=== PATIENT | male | born 1980 | race American Indian/Alaskan Native ===

== ENCOUNTER 2018-05-06 10:26 | Emergency (ER) | payer OTHER ==
[2018-05-06 11:13] VITALS: BP 146/80
--- NOTE | 2018-05-06 11:14 | Emergency Department Report ---
Blank Doc - Documentation Documentation: Medical screening for abdominal pain and teeth pain time 5 days. Taking Goody powders, No PMH, back surgry. N?V/D 11/17 pain. orders has been placed
[2018-05-06 11:36] LABS: Basophils % (Auto) 0.6 % (0.0-1.8); Eosinophils # (Auto) 0.2 K/mm3 (0.0-0.4); Eosinophils % (Auto) 3.1 % (0.0-4.3); Hematocrit 43.6 % (35.5-45.6); Hemoglobin 14.7 gm/dl (11.8-15.2); Lymphocytes # (Auto) 2.5 K/mm3 (1.2-5.4); Lymphocytes % (Auto) 37.3 % (13.4-35.0); Mean Corpuscular HGB Conc 34 % (32-34); Mean Corpuscular Volume 108 fl (84-94); Monocytes # (Auto) 0.5 K/mm3 (0.0-0.8); Monocytes % (Auto) 7.9 % (0.0-7.3); Platelet Count 326 K/mm3 (140-440); Red Blood Count 4.05 M/mm3 (3.65-5.03); Red Cell Distribution Width 13.8 % (13.2-15.2)
[2018-05-06 11:52] LABS: Bilirubin,Urine NEG (Negative); Blood,Urine NEG (Negative); Color,Urine Yellow (Yellow); Mucus,Urine 1+ /HPF; Urobilinogen,Urine < 2.0 mg/dL (<2.0)
[2018-05-06] MEDS ORDERED: ZOFRAN ODT PO ONE (12:01)
[2018-05-06] MEDS ORDERED: PEPCID PO ONE (12:01)
--- NOTE | 2018-05-06 12:03 | Emergency Department Report ---
Vomiting/Diarrhea - HPI Chief Complaint: Nausea/Vomiting/Diarrhea Stated Complaint: SORE THROAT/VOMITING Time Seen by Provider: 05/06/18 11:09 Duration: 4 Days Severity: moderate Nausea/Vomiting Severity: Mild Diarrhea Severity: None Pain Location: Epigastric Pain Severity: Moderate Symptoms: Yes Able to Tolerate Fluids (occational), No Fever, No Recent Unusual Foods, No Recent Untreated Water, No Recent use of Antibiotics, No Family w/ Similar Symptoms, No Contacts w/ Similar Symptoms, No Rash, No Hematuria Other History: Patient states that he's had a problem with his right bilateral wisdom tooth for several months. He recommends using it this tooth pulled. Kay crawford is been taking Goody powders last several weeks and has been having a burning sensation in epigastrium S4 days with some nausea and vomiting. ED Review of Systems ROS: Stated complaint: SORE THROAT/VOMITING Other details as noted in HPI Comment: All other systems reviewed and negative ED Past Medical Hx - Past Medical History Previous Medical History?: No - Surgical History Additional Surgical History: back surgery - Social History Smoking Status: Current Every Day Smoker Substance Use Type: None - Medications Home Medications: Home Medications Medication Instructions Recorded Confirmed Last Taken Type Prednisone [predniSONE 10 mg 10 mg PO .TAPER #1 tab.ds.pk 04/14/15 Unknown Rx (6-Day Pack, 21 Tabs)] levoFLOXacin [Levaquin] 750 mg PO QDAY #7 tablet 04/14/15 Unknown Rx Dicyclomine [Bentyl] 10 mg PO QID #15 capsule 05/06/18 Unknown Rx Ondansetron [Zofran Odt] 4 mg PO Q8HR PRN #12 tab.rapdis 05/06/18 Unknown Rx Sucralfate [Carafate] 1 gm PO Q6HR #400 ml 05/06/18 Unknown Rx traMADol [Ultram] 50 mg PO Q6HR PRN #15 tablet 05/06/18 Unknown Rx Vomiting Diarrhea Exam - Exam General: Vital signs noted. No distress. Alert and acting appropriately. HEENT: Yes Moist Mucous Membranes, No Pharyngeal Erythema, No Pharyngeal Exudates, No Rhinorrhea, No Conjuctival Injection, No Frontal Tenderness, No Maxillary Tenderness Neck: No Adenopathy, No Rigidity Lungs: Yes Clear Lung Sounds, Yes Good Air Exchange, No Wheezes, No Stridor, No Cough, No Nasal Flaring, No Retractions, No Use of Accessory Muscles Heart exam: Regular: Yes, Murmur: No, Tachycardia: No Abdomen: Tenderness: Yes (epigastric, mild with no rebound), Peritoneal Signs: No, Distention: No, Hyperactive Bowel sounds: No Skin exam: Rash: No, Edema: No, Normal turgor: Yes Neurologic: Alert and oriented, no deficits. Musculoskeletal: Unremarkable. ED Course Vital Signs 05/06/18 05/06/18 10:52 11:11 Temperature 98.5 F 98.6 F Pulse Rate 89 87 Respiratory 14 18 Rate Blood Pressure 146/80 Blood Pressure 126/76 [Right] O2 Sat by Pulse 96 98 Oximetry ED Medical Decision Making - Lab Data Result diagrams: 05/06/18 11:28 - Medical Decision Making Patient likely with some gastritis secondary NSAIDs. Patient encouraged to not take anymore Goody powders and small child will be given instead. Patient also given referral to low income dentists. Patient to be started on carafate and Zofran as well. Critical care attestation.: If time is entered above; I have spent that time in minutes in the direct care of this critically ill patient, excluding procedure time. ED Disposition Clinical Impression: Gastritis, Pain, dental Disposition: DC-01 TO HOME OR SELFCARE Is pt being admited?: No Does the pt Need Aspirin: No Condition: Stable Instructions: Gastritis (ED), Toothache (ED) Referrals: TERRI FLORENCE MD [Staff Physician] - 3-5 Days Time of Disposition: 12:09
== END 2018-05-06 12:32 | disposition home or self-care (01) ==
LOC: ED 10:26
DX: K08.89 Other specified disorders of teeth and supporting structures (principal); K29.70 Gastritis, unspecified, without bleeding; R11.2 Nausea with vomiting, unspecified; F17.200 Nicotine dependence, unspecified, uncomplicated; J02.9 Acute pharyngitis, unspecified
CPT/HCPCS: 36415; 81001; 83690; 85025; 99283; Q0162

== ENCOUNTER 2018-08-22 07:38 | Emergency (ER) | payer OTHER ==
[2018-08-22 07:46] VITALS: BP 144/90
[2018-08-22] MEDS ORDERED: TORADOL IM ONE (09:00)
[2018-08-22] MEDS ORDERED: FLEXERIL PO ONE (09:00)
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
--- NOTE | 2018-08-22 10:27 | Cat Scan Report ---
PROCEDURE: CT LUMBAR SPINE WO CON HISTORY: back pain/injury FINDINGS: Unenhanced CT of the lumbar spine was performed and data was reformatted in the sagittal and coronal planes. These images demonstrate no fracture or malalignment of the lumbar spine. At L1-L2 and L2-L3 there are no posterior disc abnormalities. At L2-L3 there is a small posterior disc bulge resulting in mild bilateral neural foraminal narrowing without nerve root impingement. At L4-5 there is a small posterior disc bulge which effaces the anterior margin of the thecal sac. Th ere is mild bilateral neural foraminal narrowing without nerve root impingement. At L5-S1 there is posterior endplate remodeling which effaces the anterior margin of the thecal sac b ut does not appear to result in canal stenosis. There is mild right and [id number] left foramin al narrowing without nerve root impingement. IMPRESSION: No fracture is seen in the lumbar spine All CT scans at this location are performed using dose modulation techniques as appropriate to a perf ormed exam including the following: automated exposure control, adjustment of the mA and/or kV accord ing to patient size (this includes techniques or standardized protocols for targeted exams where dose is matched to indication/reason for exam, i.e.extremities or head; use of imaging [id number] This document is electronically signed by Aaron Mehta MD., August 22 2018 10:24:56 AM ET
== END 2018-08-22 10:38 | disposition home or self-care (01) ==
LOC: ED 07:38
DX: M79.18 Myalgia, other site (principal); M54.5 Low back pain; M54.2 Cervicalgia; F17.200 Nicotine dependence, unspecified, uncomplicated; Z79.1 Long term (current) use of non-steroidal anti-inflammatories (NSAID); Z79.2 Long term (current) use of antibiotics; Z79.899 Other long term (current) drug therapy; V49.49XA Driver injured in collision with other motor vehicles in traffic accident, initial encounter; Y93.89 Activity, other specified; Y92.488 Other paved roadways as the place of occurrence of the external cause; Y99.8 Other external cause status
CPT/HCPCS: 72131; 96372; 99283; J1885

== ENCOUNTER 2018-11-23 08:29 | Emergency (ER) | payer SELFPAY ==
[2018-11-23 09:16] VITALS: BP 139/85
[2018-11-23] MEDS ORDERED: TORADOL IM ONE (11:07)
[2018-11-23] MEDS ORDERED: DELTASONE PO ONE (11:07)
--- NOTE | 2018-11-23 11:16 | Emergency Department Report ---
ED Neck Pain/Injury HPI - General Chief Complaint: Neck Pain/Injury Stated Complaint: RT NECK/ARM/HAND/PAIN Time Seen by Provider: 11/23/18 10:22 Mode of arrival: Ambulatory Limitations: No Limitations - History of Present Illness Initial Comments: This is a 38-year-old male nontoxic, well nourished in appearance, no acute signs of distress presents to the ED with c/o of acute on chronic neck pain. Patient stated that the past 2 days he was moving and developed this pain. Patient states that pain radiates through to his right upper extremity. Patient stated had a recent MRI that was done last month with impression of spondylosis and cervical spine stenosis. Patient denies any trauma. Denies any bladder or bowel instability. Patient denies any urinary symptoms. Denies any fever, chills, nausea, vomiting, headache, stiff neck, chest pain or shortness of breath. Patient denies any numbness or tingling. Denies any allergies. MD Complaint: neck pain -: days(s) (2) Place: home Radiation: right upper extremity Severity: mild Severity scale (0 -10): 8 Quality: aching Consistency: intermittent Improves With: immobilization Worsens With: movement of extremity, movement of neck Associated Symptoms: none. denies: headache, fever, numbness, tingling, weakness, vertigo, difficulty walking, swollen glands, difficulty swallowing, nausea, vomiting Treatments Prior to Arrival: none - Related Data Previous Rx's Medication Instructions Recorded Last Taken Type Prednisone [predniSONE 10 mg 10 mg PO .TAPER #1 tab.ds.pk 04/14/15 Unknown Rx (6-Day Pack, 21 Tabs)] levoFLOXacin [Levaquin] 750 mg PO QDAY #7 tablet 04/14/15 Unknown Rx Dicyclomine [Bentyl] 10 mg PO QID #15 capsule 05/06/18 Unknown Rx Ondansetron [Zofran Odt] 4 mg PO Q8HR PRN #12 tab.rapdis 05/06/18 Unknown Rx Sucralfate [Carafate] 1 gm PO Q6HR #400 ml 05/06/18 Unknown Rx traMADol [Ultram] 50 mg PO Q6HR PRN #15 tablet 05/06/18 Unknown Rx Cyclobenzaprine [Flexeril] 10 mg PO QHS PRN #20 tablet 08/22/18 Unknown Rx Ibuprofen [Motrin] 800 mg PO Q8HR #30 tablet 08/22/18 Unknown Rx Cyclobenzaprine [Flexeril] 10 mg PO QHS PRN #10 tablet 11/23/18 Unknown Rx Ibuprofen [Motrin] 600 mg PO Q8H PRN #20 tablet 11/23/18 Unknown Rx Prednisone [predniSONE 10 mg 10 mg PO .TAPER #1 tab.ds.pk 11/23/18 Unknown Rx (6-Day Pack, 21 Tabs)] Allergies Allergy/AdvReac Type Severity Reaction Status Date / Time No Known Allergies Allergy Verified 08/22/18 07:40 ED Review of Systems ROS: Stated complaint: RT NECK/ARM/HAND/PAIN Other details as noted in HPI Constitutional: denies: chills, fever Eyes: denies: eye pain, eye discharge, vision change ENT: denies: ear pain, throat pain Respiratory: denies: cough, shortness of breath, wheezing Cardiovascular: denies: chest pain, palpitations Endocrine: no symptoms reported Gastrointestinal: denies: abdominal pain, nausea, diarrhea Genitourinary: denies: urgency, dysuria Musculoskeletal: denies: back pain, joint swelling, arthralgia Skin: denies: rash, lesions Neurological: denies: headache, weakness, paresthesias Psychiatric: denies: anxiety, depression Hematological/Lymphatic: denies: easy bleeding, easy bruising ED Past Medical Hx - Past Medical History Previous Medical History?: No - Surgical History Past Surgical History?: Yes Additional Surgical History: back surgery - Social History Smoking Status: Current Every Day Smoker Substance Use Type: None - Medications Home Medications: Home Medications Medication Instructions Recorded Confirmed Last Taken Type Prednisone [predniSONE 10 mg 10 mg PO .TAPER #1 tab.ds.pk 04/14/15 Unknown Rx (6-Day Pack, 21 Tabs)] levoFLOXacin [Levaquin] 750 mg PO QDAY #7 tablet 04/14/15 Unknown Rx Dicyclomine [Bentyl] 10 mg PO QID #15 capsule 05/06/18 Unknown Rx Ondansetron [Zofran Odt] 4 mg PO Q8HR PRN #12 tab.rapdis 05/06/18 Unknown Rx Sucralfate [Carafate] 1 gm PO Q6HR #400 ml 05/06/18 Unknown Rx traMADol [Ultram] 50 mg PO Q6HR PRN #15 tablet 05/06/18 Unknown Rx Cyclobenzaprine [Flexeril] 10 mg PO QHS PRN #20 tablet 08/22/18 Unknown Rx Ibuprofen [Motrin] 800 mg PO Q8HR #30 tablet 08/22/18 Unknown Rx Cyclobenzaprine [Flexeril] 10 mg PO QHS PRN #10 tablet 11/23/18 Unknown Rx Ibuprofen [Motrin] 600 mg PO Q8H PRN #20 tablet 11/23/18 Unknown Rx Prednisone [predniSONE 10 mg 10 mg PO .TAPER #1 tab.ds.pk 11/23/18 Unknown Rx (6-Day Pack, 21 Tabs)] ED Physical Exam - General Limitations: No Limitations General appearance: alert, in no apparent distress - Head Head exam: Present: atraumatic, normocephalic - Neck Neck exam: Present: normal inspection, full ROM. Absent: tenderness, meningismus, lymphadenopathy - Respiratory Respiratory exam: Present: normal lung sounds bilaterally. Absent: respiratory distress, wheezes, rales, rhonchi, stridor, chest wall tenderness, accessory muscle use, decreased breath sounds, prolonged expiratory - Cardiovascular Cardiovascular Exam: Present: regular rate, normal rhythm, normal heart sounds. Absent: bradycardia, tachycardia, irregular rhythm, systolic murmur, diastolic murmur, rubs, gallop - Extremities Exam Extremities exam: Present: normal inspection, full ROM, normal capillary refill. Absent: tenderness, joint swelling - Back Exam Back exam: Present: normal inspection, full ROM, paraspinal tenderness (cervical paraspinal). Absent: tenderness, CVA tenderness (R), CVA tenderness (L), muscle spasm, vertebral tenderness, rash noted - Neurological Exam Neurological exam: Present: alert, oriented X3, normal gait - Psychiatric Psychiatric exam: Present: normal affect, normal mood - Skin Skin exam: Present: warm, dry, intact, normal color. Absent: rash ED Course Vital Signs 11/23/18 09:14 Temperature 98.1 F Pulse Rate 80 Respiratory 18 Rate Blood Pressure 139/85 [Right] O2 Sat by Pulse 100 Oximetry - Reevaluation(s) Reevaluation #1: 11/23/18 11:15 Patient is speaking in full sentences with no signs of distress noted. ED Medical Decision Making - Medical Decision Making This is a 38-year-old male that presents with cervical muscle strain. Patient is stable was examined by me. There is no spinal tenderness. There is no cauda equina syndrome during examination. Patient refused cervical spine xray as he stated he just had a recent MRI of cervical spine last month. No bladder or bowel instability. Patient received Toradol 60 mg IM and prednisone in the ED which stated that his symptoms has resolved and subsided. Patient is discharged with muscle relaxant and Motrin. Patient was instructed not to operate any machinery while taking muscle relaxant as they cause her drowsiness. Patient was referred to Follow-up with a primary care doctor in 3-5 days or if symptoms worsen and continue return to emergency room as soon as possible. At time of di scharge, the patient does not seem toxic or ill in appearance. No acute signs of distress noted. Patient agrees to discharge treatment plan of care. No further questions noted by the patient. This chart is dictated with using [employer] Critical care attestation.: If time is entered above; I have spent that time in minutes in the direct care of this critically ill patient, excluding procedure time. ED Disposition Clinical Impression: Cervical muscle strain Qualifiers: Encounter type: initial encounter Qualified Code(s): S16.1XXA - Strain of muscle, fascia and tendon at neck level, initial encounter Disposition: DC- TO HOME OR SELFCARE Is pt being admited?: No Does the pt Need Aspirin: No Condition: Stable Instructions: Muscle Strain (ED), Cyclobenzaprine (By mouth) Additional Instructions: Follow-up with your primary care doctor in 3-5 days or if symptoms worsen such as bladder or bowel stability, chest pain, short of breath, numbness or tingling sensation in extremities, headache, dizziness, visual changes, nausea vomiting, or abdominal pain, return back to emergency room as was possible. Take ibuprofen and Flexeril as prescribed. Do not operate heavy machinery while taking Flexeril due to sedation Prescriptions: Cyclobenzaprine [Flexeril] 10 mg PO QHS PRN #10 tablet PRN Reason: Muscle Spasm Ibuprofen [Motrin] 600 mg PO Q8H PRN #20 tablet PRN Reason: Pain Prednisone [predniSONE 10 mg (6-Day Pack, 21 Tabs)] 10 mg PO .TAPER #1 tab.ds.pk Referrals: PRIMARY CARE, [Primary Care Provider] - 3-5 Days LIZ GARCIA MD [Staff Physician] - 3-5 Days [facility] [Outside] - 3-5 Days [facility] [Outside] - 3-5 Days Forms: Work/School Release Form(ED)
== END 2018-11-23 11:17 | disposition home or self-care (01) ==
LOC: ED 08:29
DX: S16.1XXA Strain of muscle, fascia and tendon at neck level, initial encounter (principal); F17.200 Nicotine dependence, unspecified, uncomplicated; Z98.890 Other specified postprocedural states; Z79.899 Other long term (current) drug therapy; X58.XXXA Exposure to other specified factors, initial encounter; Y93.89 Activity, other specified; Y92.89 Other specified places as the place of occurrence of the external cause; Y99.8 Other external cause status
CPT/HCPCS: 96372; 99282; J1885; J7512

== ENCOUNTER 2020-10-13 15:08 | Emergency (ER) | payer OTHER ==
[2020-10-13 15:49] VITALS: BP 127/86
[2020-10-13] MEDS ORDERED: KETOROLAC 30 MG/1 ML INJ IV ONE (18:12)
[2020-10-13] MEDS ORDERED: methylPREDNISolone Sod Succinate 125 MG/2 ML INJ IV ONE (18:12)
--- NOTE | 2020-10-13 18:13 | Emergency Department Report ---
ED Back Pain/Injury HPI - General Chief Complaint: Dental/Oral Stated Complaint: BACK AND TOOTH PAIN Time Seen by Provider: 10/13/20 18:10 Source: patient Limitations: No Limitations - History of Present Illness Initial Comments: This is a 40-year-old male who presents the emergency department with a chief complaint of dental pain and swelling to the right lower jaw, left lower jaw and left upper jaw as well as lice in the genital area. He also reports he has been having low back pain over the past few months that has progressively worsened over the past 2 weeks. Reports pain radiates down his left leg and is associated with saddle paresthesias and "I cannot feel a sensation of urination." He states he had a discectomy in his lower back by Dr. Luna at [facility]. He denies any injuries, associated fever, chills, night sweats, headache, dizziness, blurry vision, nausea, vomiting, diarrhea, chest pain, shortness of breath, weakness or any other associated symptoms. - Related Data Previous Rx's Medication Instructions Recorded Last Taken Type Prednisone [predniSONE 10 mg 10 mg PO .TAPER #1 tab.ds.pk 04/14/15 Unknown Rx (6-Day Pack, 21 Tabs)] levoFLOXacin [Levaquin] 750 mg PO QDAY #7 tablet 04/14/15 Unknown Rx Dicyclomine [Bentyl] 10 mg PO QID #15 capsule 05/06/18 Unknown Rx Ondansetron [Zofran Odt] 4 mg PO Q8HR PRN #12 tab.rapdis 05/06/18 Unknown Rx Sucralfate [Carafate] 1 gm PO Q6HR #400 ml 05/06/18 Unknown Rx traMADoL [Ultram] 50 mg PO Q6HR PRN #15 tablet 05/06/18 Unknown Rx Cyclobenzaprine [Flexeril] 10 mg PO QHS PRN #20 tablet 08/22/18 Unknown Rx Ibuprofen [Motrin] 800 mg PO Q8HR #30 tablet 08/22/18 Unknown Rx Cyclobenzaprine [Flexeril] 10 mg PO QHS PRN #10 tablet 11/23/18 Unknown Rx Ibuprofen [Motrin] 600 mg PO Q8H PRN #20 tablet 11/23/18 Unknown Rx Prednisone [predniSONE 10 mg 10 mg PO .TAPER #1 tab.ds.pk 11/23/18 Unknown Rx (6-Day Pack, 21 Tabs)] HYDROcodone/APAP 5-325 [[place] 1 each PO Q6HR PRN #12 tablet 10/13/20 Unknown Rx 5/325] Penicillin V Potassium 500 mg PO QID #40 tablet 10/13/20 Unknown Rx methOCARBAMOL [Robaxin TAB] 500 mg PO Q6H PRN #20 tablet 10/13/20 Unknown Rx methylPREDNISolone [Medrol 4MG 4 mg PO ONCE #1 tab.ds.pk 10/13/20 Unknown Rx DOSEPAK (21 tabs)] Allergies Allergy/AdvReac Type Severity Reaction Status Date / Time No Known Allergies Allergy Verified 08/22/18 07:40 ED Review of Systems ROS: Stated complaint: BACK AND TOOTH PAIN Other details as noted in HPI Comment: All other systems reviewed and negative Constitutional: denies: chills, fever Eyes: denies: eye pain, eye discharge, vision change ENT: as per HPI, dental pain. denies: ear pain, throat pain Respiratory: denies: cough, shortness of breath, wheezing Cardiovascular: denies: chest pain, palpitations Endocrine: no symptoms reported Gastrointestinal: denies: abdominal pain, nausea, diarrhea Genitourinary: denies: urgency, dysuria Musculoskeletal: as per HPI, back pain. denies: joint swelling, arthralgia Skin: denies: rash, lesions Neurological: denies: headache, weakness, paresthesias Psychiatric: denies: anxiety, depression Hematological/Lymphatic: denies: easy bleeding, easy bruising ED Past Medical Hx - Past Medical History Previous Medical History?: No - Surgical History Additional Surgical History: back surgery, neck surgery - Social History Smoking Status: Current Every Day Smoker Substance Use Type: None - Medications Home Medications: Home Medications Medication Instructions Recorded Confirmed Last Taken Type Prednisone [predniSONE 10 mg 10 mg PO .TAPER #1 tab.ds.pk 04/14/15 Unknown Rx (6-Day Pack, 21 Tabs)] levoFLOXacin [Levaquin] 750 mg PO QDAY #7 tablet 04/14/15 Unknown Rx Dicyclomine [Bentyl] 10 mg PO QID #15 capsule 05/06/18 Unknown Rx Ondansetron [Zofran Odt] 4 mg PO Q8HR PRN #12 tab.rapdis 05/06/18 Unknown Rx Sucralfate [Carafate] 1 gm PO Q6HR #400 ml 05/06/18 Unknown Rx traMADoL [Ultram] 50 mg PO Q6HR PRN #15 tablet 05/06/18 Unknown Rx Cyclobenzaprine [Flexeril] 10 mg PO QHS PRN #20 tablet 08/22/18 Unknown Rx Ibuprofen [Motrin] 800 mg PO Q8HR #30 tablet 08/22/18 Unknown Rx Cyclobenzaprine [Flexeril] 10 mg PO QHS PRN #10 tablet 11/23/18 Unknown Rx Ibuprofen [Motrin] 600 mg PO Q8H PRN #20 tablet 11/23/18 Unknown Rx Prednisone [predniSONE 10 mg 10 mg PO .TAPER #1 tab.ds.pk 11/23/18 Unknown Rx (6-Day Pack, 21 Tabs)] HYDROcodone/APAP 5-325 [[place] 1 each PO Q6HR PRN #12 tablet 10/13/20 Unknown Rx 5/325] Penicillin V Potassium 500 mg PO QID #40 tablet 10/13/20 Unknown Rx methOCARBAMOL [Robaxin TAB] 500 mg PO Q6H PRN #20 tablet 10/13/20 Unknown Rx methylPREDNISolone [Medrol 4MG 4 mg PO ONCE #1 tab.ds.pk 10/13/20 Unknown Rx DOSEPAK (21 tabs)] ED Physical Exam - General Limitations: No Limitations General appearance: alert, in no apparent distress - Head Head exam: Present: atraumatic, normocephalic - Eye Eye exam: Present: normal appearance, PERRL, EOMI Pupils: Present: normal accommodation - ENT ENT exam: Present: normal exam, mucous membranes moist, other (There are multiple dental caries with a small superficial abscess around tooth #30. No trismus, peritonsillar bulging or retropharyngeal bulging.). Absent: normal orophraynx, mucous membranes dry - Neck Neck exam: Present: normal inspection, full ROM. Absent: tenderness, meningismus - Respiratory Respiratory exam: Present: normal lung sounds bilaterally. Absent: respiratory distress, wheezes, rales, rhonchi, stridor - Cardiovascular Cardiovascular Exam: Present: regular rate, normal rhythm, normal heart sounds. Absent: systolic murmur, diastolic murmur, rubs, gallop - GI/Abdominal GI/Abdominal exam: Present: soft, normal bowel sounds. Absent: distended, tenderness, guarding, rebound, rigid - Rectal Rectal exam: Present: deferred - Extremities Exam Extremities exam: Present: normal inspection, full ROM, normal capillary refill. Absent: tenderness, calf tenderness - Back Exam Back exam: Present: normal inspection, full ROM, tenderness (Tenderness palpation over the left lower lumbar area), other (Pain with straight leg raise on the left). Absent: CVA tenderness (R), CVA tenderness (L) - Neurological Exam Neurological exam: Present: alert, oriented X3, CN II-XII intact, normal gait - Psychiatric Psychiatric exam: Present: normal affect, normal mood - Skin Skin exam: Present: warm, dry, intact, normal color. Absent: rash ED Course Vital Signs 10/13/20 15:48 Temperature 98.6 F Pulse Rate 73 Respiratory 18 Rate Blood Pressure 127/86 O2 Sat by Pulse 100 Oximetry - Consultations Consultation #1: 10/13/20 18:[address] sTe (Neurosurgery) he recommended we order CT lumbar spine and call back with results. If needed he stated we could admit to the hospital for MRI in the AM and he will consult. Consultation #2: 10/13/20 19:[address] Tse again and he reviewed the CT images himself and did not see any area of critical stenosis or any emergent surgical intervention needed. He stated that we could order an outpatient MRI and that the patient could follow-up in his clinic on Friday. I discussed this with the patient and he was agreeable to this and was wanting to go home. I discussed with attending physician who also was comfortable with this plan. ED Medical Decision Making - Lab Data Result diagrams: 10/13/20 18:37 - Radiology Data Radiology results: report reviewed, image reviewed CT lumbar spine wo con INDICATION / CLINICAL INFORMATION: 40 years Male; pain radiating down left leg. TECHNIQUE: Axial CT images of the lumbar spine were obtained with sagittal and coronal reconstructions. All CT scans at this location are performed using CT dose reduction for ALARA by means of automated exposure control. COMPARISON: The study is compared to the previous CT of 08/22/2018. FINDINGS: POST-SURGICAL CHANGES: None. ALIGNMENT: There appears be minimal retrolisthesis at L5-S1 with moderate disc space narrowing. There is no significant lumbar scoliosis. VERTEBRAE: There is vacuum disc phenomenon with mild degenerative endplate changes at L3-4. There is no clear CT evidence of acute fracture involving the lumbar spine. INTERVERTEBRAL DISCS: The posterior spondylosis at L5-S1 appears greater on the left with effacement of the left lateral recess. Additionally, there also appears to be mild to moderate left neural foraminal narrowing. There is suggestion of left hemilaminectomy defect at this level. There is a laminectomy at defect at L4-L5 at. This broad-based disc bulge which mildly deforms the ventral thecal sac at. There is mild neural foraminal narrowing bilaterally. There is also laminectomy defect at this level. There is focus of air within the anterior right lateral recess which courses superiorly which is likely related to disc protrusion and the vacuum phenomenon. The residual spondylosis also contributes to mild deformity of the ventral thecal sac and mild left foraminal narrowing. PARASPINAL SOFT TISSUES: No significant abnormality. ADDITIONAL FINDINGS: None. IMPRESSION: 1. There is no CT evidence of acute fracture involving the lumbar spine. 2. There are multilevel postsurgical and degenerative changes from L3-4 to L5- S1 as detailed above. Signer Name: Akil Shelton MD Signed: 10/13/2020 6:48 PM Workstation Name: [id number] Transcribed By: MR Dictated By: Akil Shelton MD Electronically Authenticated By: Akil Shelton MD Signed Date/Time: 10/13/201847 - Medical Decision Making Patient is nontoxic in no acute distress. Vital signs are stable. Patient does have some weakness to the left leg and reported some saddle paresthesias. My concern was for cauda equina syndrome. His symptoms have been ongoing for the past 2 weeks. Discussed with the neurosurgeon who recommended a CT of the lumbar spine and he reviewed this and stated that he did not see any acute stenosis but that the patient would need an MRI but this could wait until an outpatient basis and the patient can be seen on Friday by him in his office. I discussed my attending who agreed with this plan. I discussed with the patient as well the risks of leaving including bowel or bladder dysfunction, erectile dysfunction, and permanent weakness in the extremities. I did offer observation in the hospital and potentially to get the MRI sooner however he politely declined and was comfortable going home. As far as his other complaints I will give him antibiotics for his dental abscess and permethrin shampoo for the genital lice. He will be referred to follow-up with Dr. Tse with neurosurgery on Friday and recommend dental follow-up as soon as possible. He verbalized understand the diagnosis, treatment plan and follow-up instructions all his questions were answered. - Differential Diagnosis Lumbar strain, cauda equina syndrome, dental abscess Critical care attestation.: If time is entered above; I have spent that time in minutes in the direct care of this critically ill patient, excluding procedure time. ED Disposition Clinical Impression: Dental abscess, Lumbar radiculopathy, acute Disposition: TO HOME OR SELFCARE Is pt being admited?: No Condition: Stable Instructions: Radicular Pain, Dental Abscess Prescriptions: methylPREDNISolone [Medrol 4MG DOSEPAK (21 tabs)] 4 mg PO ONCE #1 tab.ds.pk HYDROcodone/APAP 5-325 [[place] 5/325] 1 each PO Q6HR PRN #12 tablet PRN Reason: Pain Penicillin V Potassium 500 mg PO QID #40 tablet methOCARBAMOL [Robaxin TAB] 500 mg PO Q6H PRN #20 tablet PRN Reason: Spasms Referrals: PRIMARY CARE, [Primary Care Provider] - 3-5 Days Time of Disposition: 19:27
--- NOTE | 2020-10-13 18:52 | Cat Scan Report ---
CT lumbar spine wo con INDICATION / CLINICAL INFORMATION: 40 years Male; pain radiating down left leg. TECHNIQUE: Axial CT images of the lumbar spine were obtained with sagittal and coronal reconstructions. All CT s cans at this location are performed using CT dose reduction for ALARA by means of automated exposure control. COMPARISON: The study is compared to the previous CT of 08/22/2018. FINDINGS: POST-SURGICAL CHANGES: None. ALIGNMENT: There appears be minimal retrolisthesis at L5-S1 with moderate disc space narrowing. There is no significant lumbar scoliosis. VERTEBRAE: There is vacuum disc phenomenon with mild degenerative endplate changes at L3-4. There is no clear CT evidence of acute fracture involving the lumbar spine. INTERVERTEBRAL DISCS: The posterior spondylosis at L5-S1 appears greater on the left with effacement of the left lateral recess. Additionally, there also appears to be mild to moderate left neural jerrell inal narrowing. There is suggestion of left hemilaminectomy defect at this level. There is a laminectomy at defect at L4-L5 at. This broad-based disc bulge which mildly deforms the ve ntral thecal sac at. There is mild neural foraminal narrowing bilaterally. There is also laminectomy defect at this level. There is focus of air within the anterior right later al recess which courses superiorly which is likely related to disc protrusion and the vacuum phenomen on. The residual spondylosis also contributes to mild deformity of the ventral thecal sac and mild le ft foraminal narrowing. PARASPINAL SOFT TISSUES: No significant abnormality. ADDITIONAL FINDINGS: None. IMPRESSION: 1. There is no CT evidence of acute fracture involving the lumbar spine. 2. There are multilevel postsurgical and degenerative changes from L3-4 to L5-S1 as detailed above. Signer Name: Akil Shelton MD Signed: 10/13/2020 6:48 PM Workstation Name: [id number]
[2020-10-13 19:17] LABS: Alanine Aminotransferase 11 units/L (7-56); Albumin 4.2 g/dL (3.9-5); BUN/Creatinine Ratio 12; Blood Urea Nitrogen 13 mg/dL (9-20); Calcium 8.6 mg/dL (8.4-10.2); Hemolysis Index 6
[2020-10-13 19:36] LABS: Basophils # (Auto) 0.1 K/mm3 (0.0-0.1); Basophils % (Auto) 0.8 % (0.0-1.8); Eosinophils # (Auto) 0.3 K/mm3 (0.0-0.4); Eosinophils % (Auto) 4.3 % (0.0-4.3); Hematocrit 39.3 % (35.5-45.6); Hemoglobin 13.7 gm/dl (11.8-15.2); Lymphocytes # (Auto) 2.9 K/mm3 (1.2-5.4); Lymphocytes % (Auto) 39.9 % (13.4-35.0); Mean Corpuscular HGB Conc 35 % (32-34); Mean Corpuscular Volume 108 fl (84-94); Monocytes # (Auto) 0.5 K/mm3 (0.0-0.8); Monocytes % (Auto) 6.5 % (0.0-7.3); Platelet Count 295 K/mm3 (140-440); Red Blood Count 3.63 M/mm3 (3.65-5.03); Red Cell Distribution Width 13.7 % (13.2-15.2)
[2020-10-13 19:44] LABS: INR 0.98 (0.87-1.13)
[2020-10-13 19:45] LABS: Partial Thromboplastin Time 32.3 Sec. (24.2-36.6)
== END 2020-10-13 20:05 | disposition home or self-care (01) ==
LOC: ED 15:08
DX: K04.7 Periapical abscess without sinus (principal); M54.16 Radiculopathy, lumbar region; Z98.890 Other specified postprocedural states; F17.200 Nicotine dependence, unspecified, uncomplicated
CPT/HCPCS: 36415; 72131; 80053; 85025; 85610; 85730; 96374; 96375; 99284; J1885; J2930

== ENCOUNTER 2020-10-14 20:01 | Emergency (ER) | payer SELFPAY ==
[2020-10-14] MEDS ORDERED: SODIUM CHLORIDE 0.9% 1000 ML 1,000 ML IV ONE ×2 (20:34→22:50)
[2020-10-14] MEDS ORDERED: ONDANSETRON 4 MG/2 ML INJ IV ONE ×2 (20:34→23:25)
[2020-10-14] MEDS ORDERED: FAMOTIDINE 20 MG/2 ML INJ IV ONE (20:34)
[2020-10-14] MEDS ORDERED: MORPHINE 4 MG/1 ML INJ IV ONE (21:04)
[2020-10-14 21:08] LABS: Basophils # (Auto) 0.1 K/mm3 (0.0-0.1); Basophils % (Auto) 0.4 % (0.0-1.8); Hematocrit 40.7 % (35.5-45.6); Lymphocytes # (Auto) 1.3 K/mm3 (1.2-5.4); Lymphocytes % (Auto) 10.5 % (13.4-35.0); Mean Corpuscular HGB Conc 35 % (32-34); Mean Corpuscular Volume 107 fl (84-94); Monocytes # (Auto) 0.6 K/mm3 (0.0-0.8); Monocytes % (Auto) 4.8 % (0.0-7.3); Platelet Count 320 K/mm3 (140-440); Red Cell Distribution Width 13.4 % (13.2-15.2)
--- NOTE | 2020-10-14 21:16 | Emergency Department Report ---
History of Present Illness - General Chief Complaint: Overdose Stated Complaint: POSS OD Time Seen by Provider: 10/14/20 20:24 Source: patient, RN notes reviewed, old records reviewed Mode of arrival: Stretcher Limitations: Physical Limitation - History of Present Illness Initial Comments: 40-year-old male with a past medical history of chronic back pain with history of back and neck surgery presents to the hospital complaints of accidental overdose of medication. Patient states he was having significant lower back pain and took an excess amount of pain medication in his attempt to relieve the pain. He denies suicide ideation or intentional overdose attempt. Patient states he took 12 tablets of Aleve 225 mg in the span of 3 hours between 2 PM and 5 PM. He also took 2-3 Tylenol with codeine at approximately 4 PM. He states for the last "6 hours" he has experienced significant generalized abdominal pain worse in the upper abdomen. Pain described as sharp, crampy, burning, stabbing. Patient reports vomiting with 2 episodes of bloody vomitus. He denies any focal numbness, weakness, or urinary incontinence. As per medical record review, patient was here in the ED yesterday and prescribed [place], Robaxin, Medrol Dosepak, and Acticin. Patient states he was unable to fill the narcotic, he got the other medications for today but denies taking them. - Related Data Previous Rx's Medication Instructions Recorded Last Taken Type Prednisone [predniSONE 10 mg 10 mg PO .TAPER #1 tab.ds.pk 04/14/15 Unknown Rx (6-Day Pack, 21 Tabs)] levoFLOXacin [Levaquin] 750 mg PO QDAY #7 tablet 04/14/15 Unknown Rx Dicyclomine [Bentyl] 10 mg PO QID #15 capsule 05/06/18 Unknown Rx Ondansetron [Zofran Odt] 4 mg PO Q8HR PRN #12 tab.rapdis 05/06/18 Unknown Rx Sucralfate [Carafate] 1 gm PO Q6HR #400 ml 05/06/18 Unknown Rx traMADoL [Ultram] 50 mg PO Q6HR PRN #15 tablet 05/06/18 Unknown Rx Cyclobenzaprine [Flexeril] 10 mg PO QHS PRN #20 tablet 08/22/18 Unknown Rx Ibuprofen [Motrin] 800 mg PO Q8HR #30 tablet 08/22/18 Unknown Rx Cyclobenzaprine [Flexeril] 10 mg PO QHS PRN #10 tablet 11/23/18 Unknown Rx Ibuprofen [Motrin] 600 mg PO Q8H PRN #20 tablet 11/23/18 Unknown Rx Prednisone [predniSONE 10 mg 10 mg PO .TAPER #1 tab.ds.pk 11/23/18 Unknown Rx (6-Day Pack, 21 Tabs)] HYDROcodone/APAP 5-325 [[place] 1 each PO Q6HR PRN #12 tablet 10/13/20 Unknown Rx 5/325] Penicillin V Potassium 500 mg PO QID #40 tablet 10/13/20 Unknown Rx Permethrin 5% [Acticin 5% CREAM] 1 applicatio TP ONCE #1 tube 10/13/20 Unknown Rx methOCARBAMOL [Robaxin TAB] 500 mg PO Q6H PRN #20 tablet 10/13/20 Unknown Rx methylPREDNISolone [Medrol 4MG 4 mg PO ONCE #1 tab.ds.pk 10/13/20 Unknown Rx DOSEPAK (21 tabs)] Ondansetron [Zofran Odt] 4 mg PO Q8HR #20 tab.rapdis 10/15/20 Unknown Rx Pantoprazole [Protonix] 40 mg PO QDAY #20 tablet 10/15/20 Unknown Rx Potassium Chloride [K-Dur] 20 meq PO QDAY #2 tablet 10/15/20 Unknown Rx Allergies Allergy/AdvReac Type Severity Reaction Status Date / Time No Known Allergies Allergy Verified 08/22/18 07:40 ED Review of Systems ROS: Stated complaint: POSS OD Other details as noted in HPI Comment: All other systems reviewed and negative ED Past Medical Hx - Past Medical History Previous Medical History?: No - Surgical History Past Surgical History?: Yes Additional Surgical History: back surgery, neck surgery - Social History Smoking Status: Current Every Day Smoker Substance Use Type: None - Medications Home Medications: Home Medications Medication Instructions Recorded Confirmed Last Taken Type Prednisone [predniSONE 10 mg 10 mg PO .TAPER #1 tab.ds.pk 04/14/15 Unknown Rx (6-Day Pack, 21 Tabs)] levoFLOXacin [Levaquin] 750 mg PO QDAY #7 tablet 04/14/15 Unknown Rx Dicyclomine [Bentyl] 10 mg PO QID #15 capsule 05/06/18 Unknown Rx Ondansetron [Zofran Odt] 4 mg PO Q8HR PRN #12 tab.rapdis 05/06/18 Unknown Rx Sucralfate [Carafate] 1 gm PO Q6HR #400 ml 05/06/18 Unknown Rx traMADoL [Ultram] 50 mg PO Q6HR PRN #15 tablet 05/06/18 Unknown Rx Cyclobenzaprine [Flexeril] 10 mg PO QHS PRN #20 tablet 08/22/18 Unknown Rx Ibuprofen [Motrin] 800 mg PO Q8HR #30 tablet 08/22/18 Unknown Rx Cyclobenzaprine [Flexeril] 10 mg PO QHS PRN #10 tablet 11/23/18 Unknown Rx Ibuprofen [Motrin] 600 mg PO Q8H PRN #20 tablet 11/23/18 Unknown Rx Prednisone [predniSONE 10 mg 10 mg PO .TAPER #1 tab.ds.pk 11/23/18 Unknown Rx (6-Day Pack, 21 Tabs)] HYDROcodone/APAP 5-325 [[place] 1 each PO Q6HR PRN #12 tablet 10/13/20 Unknown Rx 5/325] Penicillin V Potassium 500 mg PO QID #40 tablet 10/13/20 Unknown Rx Permethrin 5% [Acticin 5% CREAM] 1 applicatio TP ONCE #1 tube 10/13/20 Unknown Rx methOCARBAMOL [Robaxin TAB] 500 mg PO Q6H PRN #20 tablet 10/13/20 Unknown Rx methylPREDNISolone [Medrol 4MG 4 mg PO ONCE #1 tab.ds.pk 10/13/20 Unknown Rx DOSEPAK (21 tabs)] Ondansetron [Zofran Odt] 4 mg PO Q8HR #20 tab.rapdis 10/15/20 Unknown Rx Pantoprazole [Protonix] 40 mg PO QDAY #20 tablet 10/15/20 Unknown Rx Potassium Chloride [K-Dur] 20 meq PO QDAY #2 tablet 10/15/20 Unknown Rx ED Physical Exam - General Limitations: Physical Limitation - Other Other exam information: General: No distress ocular pain Head: Atraumatic Eyes: normal appearance ENT: Moist mucous membranes Neck: Normal appearance, no midline tenderness Chest: Clear to auscultation bilaterally CV: Regular rate and rhythm Abdomen: Soft, normal bowel sounds, generalized abdominal tenderness, nondistended, no rebound or guarding Rectal: Guaiac positive brown stool without gross blood or melena. Good rectal tone Back: Normal inspection Extremity: Normal inspection, full range of motion Neuro: Alert O x 3, no facial asymmetry, speech clear, no gross motor sensory deficit Psych: Appropriate behavior Skin: No rash ED Course Vital Signs 10/14/20 10/14/20 10/14/20 20:23 20:26 20:31 Temperature 98.8 F Pulse Rate 60 60 Respiratory 19 15 Rate Blood Pressure 157/98 Blood Pressure 157/98 [Right] O2 Sat by Pulse 96 97 97 Oximetry 10/14/20 10/14/20 10/14/20 20:45 21:01 21:15 Temperature Pulse Rate 59 L 66 56 L Respiratory 22 13 17 Rate Blood Pressure 157/98 145/92 145/92 Blood Pressure [Right] O2 Sat by Pulse 95 93 94 Oximetry 10/14/20 10/14/20 10/14/20 21:31 21:45 22:01 Temperature Pulse Rate 59 L 66 84 Respiratory 18 21 15 Rate Blood Pressure 142/75 142/75 142/75 Blood Pressure [Right] O2 Sat by Pulse 95 94 96 Oximetry 10/14/20 10/14/20 10/14/20 22:15 22:24 22:30 Temperature Pulse Rate 56 L 64 Respiratory 18 19 34 H Rate Blood Pressure 142/75 151/86 Blood Pressure [Right] O2 Sat by Pulse 95 92 Oximetry 10/14/20 10/14/20 10/14/20 22:54 23:00 23:16 Temperature Pulse Rate 57 L 56 L Respiratory 16 16 18 Rate Blood Pressure 141/79 141/79 Blood Pressure [Right] O2 Sat by Pulse 93 97 Oximetry 10/14/20 10/14/20 10/15/20 23:30 23:37 00:30 Temperature Pulse Rate 54 L 52 L 63 Respiratory 11 L 13 17 Rate Blood Pressure 149/78 149/78 149/78 Blood Pressure [Right] O2 Sat by Pulse 95 95 96 Oximetry 10/15/20 10/15/20 10/15/20 00:46 01:00 01:16 Temperature Pulse Rate 62 61 58 L Respiratory 14 17 18 Rate Blood Pressure 149/78 147/92 147/92 Blood Pressure [Right] O2 Sat by Pulse 95 95 94 Oximetry 10/15/20 10/15/20 10/15/20 02:00 02:30 02:46 Temperature Pulse Rate 59 L 54 L 54 L Respiratory 13 18 18 Rate Blood Pressure 135/86 117/83 117/83 Blood Pressure [Right] O2 Sat by Pulse 96 94 92 Oximetry 10/15/20 10/15/20 10/15/20 03:00 03:16 03:30 Temperature Pulse Rate 55 L 54 L 59 L Respiratory 15 16 16 Rate Blood Pressure 148/92 148/92 143/88 Blood Pressure [Right] O2 Sat by Pulse 94 95 93 Oximetry 10/15/20 10/15/20 03:46 04:00 Temperature Pulse Rate 57 L 57 L Respiratory 15 12 Rate Blood Pressure 143/88 126/77 Blood Pressure [Right] O2 Sat by Pulse 93 95 Oximetry - Reevaluation(s) Reevaluation #1: 10/14/20 23:26 Patient sleeping after receiving ED medication. He states that his pain is improved. His persistent nausea however, he has not had any further episodes of vomiting since receiving the medication. There is a bag of vomit noted with brown dark vomitus without gross blood. Patient states he vomited prior to receive the medication - Consultations Consultation #1: 10/14/20 Case discussed with poison control after patient interview. Recommend labs, supportive care, will follow. Case discussed with [place] 10/15/20 00:21 I reContacted poison control to discuss recommendation of addition of iron level reported by RN. I was informed by covering [employer] security consultant that it could possibly have been recommended to her coagulations given GI symptoms 10/15/20 00:23 DR Josse carter called 10/15/20 00:[address] Josse CARTER who recommends outpatient Protonix ED Medical Decision Making - Lab Data Result diagrams: 10/14/20 20:55 10/14/20 20:55 Lab Results 10/14/20 10/14/20 10/14/20 Range/Units 20:55 20:55 20:55 WBC 12.8 H (4.5-11.0) K/mm3 RBC 3.80 (3.65-5.03) M/mm3 Hgb 14.0 (11.8-15.2) gm/dl Hct 40.7 (35.5-45.6) % MCV 107 H (84-94) fl MCH 37 H (28-32) pg MCHC 35 H (32-34) % RDW 13.4 (13.2-15.2) % Plt Count 320 (140-440) K/mm3 Lymph % (Auto) 10.5 L (13.4-35.0) % Mitchell % (Auto) 4.8 (0.0-7.3) % Eos % (Auto) 0.0 (0.0-4.3) % Baso % (Auto) 0.4 (0.0-1.8) % Lymph # (Auto) 1.3 (1.2-5.4) K/mm3 Mitchell # (Auto) 0.6 (0.0-0.8) K/mm3 Eos # (Auto) 0.0 (0.0-0.4) K/mm3 Baso # (Auto) 0.1 (0.0-0.1) K/mm3 Seg Neutrophils % 84.3 H (40.0-70.0) % Seg Neutrophils # 10.8 H (1.8-7.7) K/mm3 PT (12.2-14.9) Sec. INR (0.87-1.13) APTT (24.2-36.6) Sec. Sodium 137 (137-145) mmol/L Potassium 3.4 L (3.6-5.0) mmol/L Chloride 102.7 (98-107) mmol/L Carbon Dioxide 23 (22-30) mmol/L Anion Gap 15 mmol/L BUN 12 (9-20) mg/dL Creatinine 0.9 (0.8-1.3) mg/dL Estimated GFR > 60 ml/min BUN/Creatinine Ratio 13 % Glucose 118 H (75-100) mg/dL Calcium 8.8 (8.4-10.2) mg/dL Iron (49-181) ug/dL TIBC (250-450) mcg/dL % Saturation % Transferrin (180-329) mg/dl Total Bilirubin 0.50 (0.1-1.2) mg/dL AST 27 (5-40) units/L ALT 17 (7-56) units/L Alkaline Phosphatase 70 (35-129) units/L Total Protein 8.2 (6.3-8.2) g/dL Albumin 4.5 (3.9-5) g/dL Albumin/Globulin Ratio 1.2 % Lipase (13-60) units/L Salicylates < 0.3 L (2.8-20.0) mg/dL Urine Opiates Screen Urine Methadone Screen Acetaminophen (10.0-30.0) ug/mL Ur Barbiturates Screen Ur Phencyclidine Scrn Ur Amphetamines Screen U Benzodiazepines Scrn Urine Cocaine Screen U Marijuana (THC) Screen Drugs of Abuse Note Plasma/Serum Alcohol (0-0.07) % 10/14/20 10/14/20 10/14/20 Range/Units 20:55 20:55 20:55 WBC (4.5-11.0) K/mm3 RBC (3.65-5.03) M/mm3 Hgb (11.8-15.2) gm/dl Hct (35.5-45.6) % MCV (84-94) fl MCH (28-32) pg MCHC (32-34) % RDW (13.2-15.2) % Plt Count (140-440) K/mm3 Lymph % (Auto) (13.4-35.0) % Mitchell % (Auto) (0.0-7.3) % Eos % (Auto) (0.0-4.3) % Baso % (Auto) (0.0-1.8) % Lymph # (Auto) (1.2-5.4) K/mm3 Mitchell # (Auto) (0.0-0.8) K/mm3 Eos # (Auto) (0.0-0.4) K/mm3 Baso # (Auto) (0.0-0.1) K/mm3 Seg Neutrophils % (40.0-70.0) % Seg Neutrophils # (1.8-7.7) K/mm3 PT 14.4 (12.2-14.9) Sec. INR 1.07 (0.87-1.13) APTT 31.3 (24.2-36.6) Sec. Sodium (137-145) mmol/L Potassium (3.6-5.0) mmol/L Chloride (98-107) mmol/L Carbon Dioxide (22-30) mmol/L Anion Gap mmol/L BUN (9-20) mg/dL Creatinine (0.8-1.3) mg/dL Estimated GFR ml/min BUN/Creatinine Ratio % Glucose (75-100) mg/dL Calcium (8.4-10.2) mg/dL Iron (49-181) ug/dL TIBC (250-450) mcg/dL % Saturation % Transferrin (180-329) mg/dl Total Bilirubin (0.1-1.2) mg/dL AST (5-40) units/L ALT (7-56) units/L Alkaline Phosphatase (35-129) units/L Total Protein (6.3-8.2) g/dL Albumin (3.9-5) g/dL Albumin/Globulin Ratio % Lipase (13-60) units/L Salicylates (2.8-20.0) mg/dL Urine Opiates Screen Urine Methadone Screen Acetaminophen 5.0 L (10.0-30.0) ug/mL Ur Barbiturates Screen Ur Phencyclidine Scrn Ur Amphetamines Screen U Benzodiazepines Scrn Urine Cocaine Screen U Marijuana (THC) Screen Drugs of Abuse Note Plasma/Serum Alcohol < 0.01 (0-0.07) % 10/14/20 10/14/20 10/14/20 Range/Units 20:55 20:55 22:29 WBC (4.5-11.0) K/mm3 RBC (3.65-5.03) M/mm3 Hgb (11.8-15.2) gm/dl Hct (35.5-45.6) % MCV (84-94) fl MCH (28-32) pg MCHC (32-34) % RDW (13.2-15.2) % Plt Count (140-440) K/mm3 Lymph % (Auto) (13.4-35.0) % Mitchell % (Auto) (0.0-7.3) % Eos % (Auto) (0.0-4.3) % Baso % (Auto) (0.0-1.8) % Lymph # (Auto) (1.2-5.4) K/mm3 Mitchell # (Auto) (0.0-0.8) K/mm3 Eos # (Auto) (0.0-0.4) K/mm3 Baso # (Auto) (0.0-0.1) K/mm3 Seg Neutrophils % (40.0-70.0) % Seg Neutrophils # (1.8-7.7) K/mm3 PT (12.2-14.9) Sec. INR (0.87-1.13) APTT (24.2-36.6) Sec. Sodium (137-145) mmol/L Potassium (3.6-5.0) mmol/L Chloride (98-107) mmol/L Carbon Dioxide (22-30) mmol/L Anion Gap mmol/L BUN (9-20) mg/dL Creatinine (0.8-1.3) mg/dL Estimated GFR ml/min BUN/Creatinine Ratio % Glucose (75-100) mg/dL Calcium (8.4-10.2) mg/dL Iron 88 (49-181) ug/dL TIBC 237 L (250-450) mcg/dL % Saturation 37.13 % Transferrin 208 (180-329) mg/dl Total Bilirubin (0.1-1.2) mg/dL AST (5-40) units/L ALT (7-56) units/L Alkaline Phosphatase (35-129) units/L Total Protein (6.3-8.2) g/dL Albumin (3.9-5) g/dL Albumin/Globulin Ratio % Lipase 362 H (13-60) units/L Salicylates (2.8-20.0) mg/dL Urine Opiates Screen Presumptive positive Urine Methadone Screen Presumptive negative Acetaminophen (10.0-30.0) ug/mL Ur Barbiturates Screen Presumptive negative Ur Phencyclidine Scrn Presumptive negative Ur Amphetamines Screen Presumptive negative U Benzodiazepines Scrn Presumptive negative Urine Cocaine Screen Presumptive negative U Marijuana (THC) Screen Presumptive positive Drugs of Abuse Note Disclamer Plasma/Serum Alcohol (0-0.07) % - Radiology Data Radiology results: report reviewed CT ABDOMEN AND PELVIS WITH CONTRAST HISTORY: ABDOMINAL PAIN, N,V AFTER NSAID INGESTION. COMPARISON: None. TECHNIQUE: CT images of the abdomen and pelvis were obtained following administration of intravenous contrast. All CT scans at this location are performed using CT dose reduction for ALARA by means of automated exposure control. CONTRAST: 100 ml of intravenous contrast administered. FINDINGS: Lungs/bones: Lung bases are clear. There are degenerative changes in the spine and pelvis with no acute osseous abnormality identified. Abdomen/pelvis: There is mild periportal edema. The liver is otherwise unremarkable. The gallbladder, spleen, pancreas, adrenals, kidneys, and proximal GI tract appear unremarkable. Urinary bladder and prostate are unremarkable with no pelvic free fluid or acute colonic abnormality. Appendix is normal. IMPRESSION: 1. Mild periportal edema involving the liver could be related to inflammation or aggressive fluid hydration. Otherwise nothing acute. - Medical Decision Making 40-year male presents to the hospital with abdominal pain, nausea, vomiting after ingestion of an excessive amount of NSAID and several tablets of Tylenol with codeine. Patient reports vomiting blood however in the ED he did vomit dark brown vomitus suggestive of coffee-ground emesis. Rectal exam revealed guaiac positive brown stool without melena or gross blood. Patient does have a mildly elevated lipase but no CT findings of pancreatitis. Patient also has normal H&H without signs of hypotension or tachycardia. Vomiting improved with Zofran and Pepcid. Pain relief with morphine and patient was hydrated with IV f luids. Case discussed with poison control and symptomatic treatment recommended. Case discussed with GI Critical Care Time: Yes Critical care time in (mins) excluding proc time.: 35 (posion control) Critical care attestation.: If time is entered above; I have spent that time in minutes in the direct care of this critically ill patient, excluding procedure time. ED Disposition Clinical Impression: NSAID overdose, Chronic back pain Disposition: DC-01 TO HOME OR SELFCARE Is pt being admited?: No Does the pt Need Aspirin: No Condition: Stable Instructions: Accidental Drug Poisoning, Adult, Gastritis, Adult, Chronic Pain, Adult Additional Instructions: Take the medication as prescribed. Follow-up with your doctor or doctor/clinic provided. Return if symptoms worsen as indicated by your discharge instructions. Take your medications only as prescribed and directed do not take excessive doses due to risk of adverse reactions and possible . I recommend that you DO NOT TAKE the prescribed steroids/methylprednisone given your stomach irritation from excessive NSAID use/Aleve use. Taking the steroid under this circumstances will increase your risk of stomach ulceration. Prescriptions: Potassium Chloride [K-Dur] 20 meq PO QDAY #2 tablet Pantoprazole [Protonix] 40 mg PO QDAY #20 tablet Ondansetron [Zofran Odt] 4 mg PO Q8HR #20 tab.rapdis Referrals: PRIMARY CARE, [Primary Care Provider] - 3-5 Days AYSHA DUMONT MD [Staff Physician] - 3-5 Days (Gastroenterology)
[2020-10-14 21:33] LABS: Alanine Aminotransferase 17 units/L (7-56); Albumin 4.5 g/dL (3.9-5); BUN/Creatinine Ratio 13; Blood Urea Nitrogen 12 mg/dL (9-20); Calcium 8.8 mg/dL (8.4-10.2); Hemolysis Index 10
[2020-10-14 21:37] LABS: INR 1.07 (0.87-1.13)
[2020-10-14 21:38] LABS: Partial Thromboplastin Time 31.3 Sec. (24.2-36.6)
[2020-10-14 23:05] LABS: Amphetamine Screen,Urine PRESUMPTIVE NEGATIVE; Benzodiazepines Screen,Urine PRESUMPTIVE NEGATIVE; Cannabinoid Screen,Urine PRESUMPTIVE POSITIVE; Cocaine Screen,Urine PRESUMPTIVE NEGATIVE; Methadone Screen,Urine PRESUMPTIVE NEGATIVE; Opiate Screen,Urine PRESUMPTIVE POSITIVE
--- NOTE | 2020-10-15 00:12 | Cat Scan Report ---
CT ABDOMEN AND PELVIS WITH CONTRAST HISTORY: ABDOMINAL PAIN, N,V AFTER NSAID INGESTION. COMPARISON: None. TECHNIQUE: CT images of the abdomen and pelvis were obtained following administration of intravenous contrast. All CT scans at this location are performed using CT dose reduction for ALARA by means of automated exposure control. CONTRAST: 100 ml of intravenous contrast administered. FINDINGS: Lungs/bones: Lung bases are clear. There are degenerative changes in the spine and pelvis with no ac [place] osseous abnormality identified. Abdomen/pelvis: There is mild periportal edema. The liver is otherwise unremarkable. The gallbladder , spleen, pancreas, adrenals, kidneys, and proximal GI tract appear unremarkable. Urinary bladder and prostate are unremarkable with no pelvic free fluid or acute colonic abnormality. Appendix is normal. IMPRESSION: 1. Mild periportal edema involving the liver could be related to inflammation or aggressive fluid hyd ration. Otherwise nothing acute. Signer Name: Vicente Jimenez MD Signed: 10/15/2020 12:08 AM Workstation Name: [id number]
[2020-10-15 02:17] LABS: % Iron Saturation 37.13 %
[2020-10-15 04:10] VITALS: BP 126/77
== END 2020-10-15 04:31 | disposition home or self-care (01) ==
LOC: ED 20:01
DX: T39.391A Poisoning by other nonsteroidal anti-inflammatory drugs [NSAID], accidental (unintentional), initial encounter (principal); G89.29 Other chronic pain; R79.1 Abnormal coagulation profile; F17.200 Nicotine dependence, unspecified, uncomplicated; Z98.890 Other specified postprocedural states; Z79.899 Other long term (current) drug therapy; Y92.89 Other specified places as the place of occurrence of the external cause
CPT/HCPCS: 36415; 74177; 80053; 80307; 82271; 83550; 83690; 85025; 85610; 85730; 96361; 96374; 96375; 96376; 99285; J2270; J2405; J7030; Q9967; 80320; 96365; G0480

== ENCOUNTER 2020-10-18 05:26 | Emergency (ER) | payer SELFPAY | END 2020-10-18 06:30 | disposition home or self-care (01) | LOC: ED 05:26 | DX: R11.10 Vomiting, unspecified (principal); Z53.21 Procedure and treatment not carried out due to patient leaving prior to being seen by health care provider ==